=== PATIENT | female | born 1980 | race Caucasian/White ===

== ENCOUNTER → 2018-05-28 14:13 | Outpatient (CLI) | payer OTHER, SELFPAY ==
[2018-05-31 13:09] LABS: HPV HC, High Risk Negative (Negative)
== END ==
PROVIDERS: Visit Provider Obstetrics & Gynecology
DX: Z12.4 Encounter for screening for malignant neoplasm of cervix (principal)
CPT/HCPCS: 87624; 88175; G0145

== ENCOUNTER → 2023-07-31 | Outpatient (CLI) | payer BC, SELFPAY ==
--- NOTE | 2023-07-31 12:27 | NEURO ---
NCS and/or EMG Patient Report Ordering Doctor: Raisa Mann DATE OF SERVICE: 07/31/23 Roxanne presents for electrodiagnostic testing of the right upper limb. She reports shooting pain from her neck into the right arm. Electrodiagnostic findings: Right median motor nerve demonstrates normal distal latency, amplitude and conduction velocity. Normal right ulnar motor response. Normal right median and ulnar F?waves. Sensory responses within normal limits. Needle EMG testing was performed in the right upper limb. 1+ fibrillation potentials were noted in the right triceps and right cervical paraspinals. 1+ positive sharp waves noted in the right flexor carpi ulnaris. Motor unit action potentials are of normal amplitude and duration. Electrodiagnostic impression: This is an abnormal study in the right upper limb. 1. Electrodiagnostic findings suggestive of acute right C7 radiculopathy. 2. There is no electrodiagnostic evidence for peripheral neuropathy, including carpal tunnel or cubital tunnel syndrome. Multi Select Codes Neurology Neurology Interp Codes: 81452-25 Musc test done w/n test comp (interp) and 18182-85 Nrv cndj test 7-8 studies (interp)
== END | disposition home or self-care (01) ==
LOC: PSN 09:51
PROVIDERS: PCP Internal Medicine; Referring Provider Physician Assistant; Visit Provider Physician Assistant
DX: R20.2 Paresthesia of skin (principal); M25.511 Pain in right shoulder; M54.2 Cervicalgia
CPT/HCPCS: 95886; 95910